=== PATIENT | male | born 2000 | race Two or more races ===

== ENCOUNTER 2021-10-25 21:57 | Emergency (ER) | payer OTHER ==
[2021-10-25 22:13] VITALS: BP 120/80
[2021-10-25] MEDS ORDERED: IBUPROFEN 600 MG TABLET PO STA ×2 (22:43→23:20)
[2021-10-25] MEDS ORDERED: LIDOCAINE PATCH 5% TOP STA ×2 (22:43→23:20)
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
== END 2021-10-25 23:36 | disposition home or self-care (01) ==
LOC: ED 21:57
DX: S13.4XXA Sprain of ligaments of cervical spine, initial encounter (principal); V89.0XXA Person injured in unspecified motor-vehicle accident, nontraffic, initial encounter; Y93.89 Activity, other specified; Y92.481 Parking lot as the place of occurrence of the external cause
CPT/HCPCS: 99282; A9270